=== PATIENT | female | born 1970 | race Caucasian/White ===

== ENCOUNTER 2016-12-13 21:40 | Emergency (ER) | payer OTHER ==
[2016-12-13 21:46] VITALS: BP 140/82
[2016-12-13] MEDS ORDERED: DIPH/PERTUSS(ACELL)/TETANUS VAC/PF 0.5 ML SYR (>=10YO) IM ONE (22:00)
--- NOTE | 2016-12-13 22:02 | ER Document Report ---
HPI - HPI Patient complains to provider of: left index finger injury Pain Level: 2 Context: Patient is a 38-year-old female who comes emergency department for chief complaint of a small laceration to the left index finger. She states she was trying to pull a cushion under herself when she pinched the finger between a question and the side of the chair and the chair caused a small laceration which was bleeding. She applied pressure and was able to stop the bleeding. She is not up-to-date on her tetanus. She does not have diabetes. She is not on a blood thinner. - REPRODUCTIVE Reproductive: DENIES: : Past Medical History - General Information source: Patient - Social History Smoking Status: Never Smoker Frequency of alcohol use: None Drug Abuse: None Lives with: Family Family History: Reviewed & Not Pertinent Patient has suicidal ideation: No Patient has homicidal ideation: No - Past Medical History Cardiac Medical History: Reports: Hx Hypertension Pulmonary Medical History: Denies: Hx Tuberculosis Renal/ Medical History: Reports: Hx Kidney Stones - LEFT KIDNEY. Denies: Hx Peritoneal Dialysis Musculoskeltal Medical History: Reports Hx Arthritis Past Surgical History: Reports: Hx Section - X3, Hx Cholecystectomy, Hx Hysterectomy. Denies: Hx Pacemaker - Immunizations Hx Diphtheria, Pertussis, Tetanus Vaccination: Yes Vertical Provider Document - CONSTITUTIONAL General Appearance: WD/WN, No Apparent Distress - INFECTION CONTROL TRAVEL OUTSIDE OF THE [place] IN LAST 30 DAYS: No - HEENT HEENT: Atraumatic, Normocephalic - NECK Neck: Normal Inspection - RESPIRATORY Respiratory: Breath Sounds Normal, No Respiratory Distress O2 Sat by Pulse Oximetry: 95 - CARDIOVASCULAR Cardiovascular: Regular Rate, Regular Rhythm - GI/ABDOMEN Gastrointestinal: Abdomen Soft, Abdomen Non-Tender - BACK Back: Normal Inspection - MUSCULOSKELETAL/EXTREMETIES Musculoskeletal/Extremeties: Tender - There is a 0.5 cm linear laceration over the lateral side of the left index finger, superficial, near the nail but not including the nail. Normal range of motion of the finger, normal capillary refill and sensation, normal hand exam otherwise. Course - Re-evaluation Re-evalutation: Patient with a very small laceration over the left lateral index finger near the fingernail. No current bleeding. I discussed different fixing options including 1 to 2 sutures versus Dermabond. Discussed infection risks especially with the location of the finger. Chose Dermabond. Wound repaired without any difficulty. Discussed wound care, follow-up, return precautions. Patient states understanding and agreement. - Vital Signs Vital signs: Temp Pulse Resp BP Pulse Ox 98.2 F 80 18 140/82 H 95 12/13/16 21:44 12/13/16 21:44 12/13/16 21:44 12/13/16 21:44 12/13/16 21:44 Procedures - Laceration/Wound Repair Left index finger Wound length (cm): 0.5 Wound's Depth, Shape: Linear Laceration pre-procedure: Sterile PPE donned, Sterile drapes applied, Shur- Clens applied - surgiclens Wound explored: Clean, No foreign body removed Wound Debrided: Minimal Wound Repaired With: Dermabond Layer Closure?: No Post-procedure NV exam normal: Yes Complications: No Discharge - Discharge Clinical Impression: Finger laceration Qualifiers: Encounter type: initial encounter Finger: index finger Damage to nail status: without damage Foreign body presence: without foreign body Laterality: left Qualified Code(s): S61.211A - Laceration without foreign body of left index finger without damage to nail, initial encounter Condition: Stable Disposition: HOME, SELF-CARE Additional Instructions: Examination shows a small laceration to the left index finger. This has been repaired with Dermabond. You can wash your hand with soap and water, you can shower, avoid scrubbing the glued area, do not place antibiotic ointment on it, glue should stay on for 5 days. After this if you want to remove it using antibiotic ointment you can. Follow-up with primary care. Return to emergency department for any concerning symptoms including swelling or redness of the finger, fever, or any other concerning symptoms.
== END 2016-12-13 22:13 | disposition home or self-care (01) ==
LOC: ER 21:40
DX: S61.211A Laceration without foreign body of left index finger without damage to nail, initial encounter (principal); X58.XXXA Exposure to other specified factors, initial encounter
CPT/HCPCS: 99283

== ENCOUNTER 2017-07-18 08:51 | Emergency (ER) | payer OTHER ==
[2017-07-18] MEDS ORDERED: ONDANSETRON HCL INJ/PF 4 MG/2 ML SDV IV ONE ×2 (09:19→10:20)
[2017-07-18] MEDS ORDERED: METOCLOPRAMIDE HCL INJ/PF 10 MG/2 ML SDV IV ONE (09:43)
[2017-07-18] MEDS: RINGERS SOLUTION,LACTATED 1,000 ML IV PRN ×2 (10:03→10:22)
[2017-07-18 10:37] LABS: ABSOLUTE LYMPHOCYTES (AUTO) 0.8 10^3/uL (0.5-4.7); ABSOLUTE MONOCYTES (AUTO) 0.5 10^3/uL (0.1-1.4); ABSOLUTE NEUT (AUTO) 5.9 10^3/uL (1.7-8.2); BASOPHILS % (AUTO) 0.4 % (0-2); EOSINOPHILS % (AUTO) 0.4 % (0-6); HEMATOCRIT 44.4 % (36.0-47.0); HEMOGLOBIN 14.2 g/dL (12.0-15.5); LYMPHOCYTES % (AUTO) 11.3 % (13-45); MEAN CORPUSCULAR HEMOGLOBIN 27.8 pg (27.0-33.4); MEAN CORPUSCULAR VOLUME 87 fl (80-97); MONOCYTES % (AUTO) 7.1 % (3-13); PLATELET COUNT 276 10^3/uL (150-450); RED CELL DISTRIBUTION WIDTH 15.3 % (11.5-14.0); SEGMENTED NEUTROPHILS % (AUTO) 80.8 % (42-78); TOTAL CELLS COUNTED % (AUTO) 100 %; WHITE BLOOD COUNT 7.4 10^3/uL (4.0-10.5)
[2017-07-18 10:50] LABS: APPEARANCE,URINE CLEAR; BILIRUBIN,URINE NEGATIVE (NEGATIVE); COLOR,URINE YELLOW; GLUCOSE, URINE NEGATIVE (NEGATIVE); KETONES,URINE NEGATIVE (NEGATIVE); LEUKOCYTE ESTERASE,URINE NEGATIVE (NEGATIVE); NITRITE,URINE NEGATIVE (NEGATIVE); PROTEIN,URINE NEGATIVE (NEGATIVE); URINE SPECIFIC GRAVITY 1.023; UROBILINOGEN,URINE NEGATIVE mg/dL (<2.0)
[2017-07-18 13:27] LABS: ALANINE AMINOTRANSFERASE 36 U/L (9-52); ALBUMIN 3.7 g/dL (3.5-5.0); ALKALINE PHOSPHATASE 78 U/L (38-126); ANION GAP 6 (5-19); ASPARTATE AMINO TRANSFERASE 22 U/L (14-36); BILIRUBIN,DIRECT 0.1 mg/dL (0.0-0.4); BILIRUBIN,TOTAL 0.8 mg/dL (0.2-1.3); BLOOD UREA NITROGEN 13 mg/dL (7-20); CALCIUM 9.3 mg/dL (8.4-10.2); CARBON DIOXIDE 28 mmol/L (22-30); CHLORIDE 105 mmol/L (98-107); GLUCOSE 86 mg/dL (75-110); LIPASE 53.3 U/L (23-300); POTASSIUM 4.1 mmol/L (3.6-5.0); SODIUM 139.4 mmol/L (137-145); TOTAL PROTEIN 6.2 g/dL (6.3-8.2)
--- NOTE | 2017-07-18 14:03 | ER Document Report ---
ED General - General Chief Complaint: Nausea/Vomiting/Diarrhea Stated Complaint: NAUSEA Time Seen by Provider: 07/18/17 09:18 TRAVEL OUTSIDE OF THE [place] IN LAST 30 DAYS: No - HPI Patient complains to provider of: Nausea vomiting diarrhea Notes: Patient coming in for acute onset of nausea vomiting diarrhea. 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 Patient denies any abdominal pain denies any fevers or chills. Patient also denies any recent antibiotics denies any recent travel patient resting comfortably upon my evaluation states she had Zofran at home with no relief of her nausea - Related Data Allergies/Adverse Reactions: iodine [Iodine] Allergy (Severe, Verified 07/18/17 08:55) levofloxacin [From Levaquin] Allergy (Mild, Verified 07/18/17 08:55) azithromycin [From Zithromax Z-Omi] Allergy (Verified 07/18/17 08:55) ciprofloxacin [From Cipro] Allergy (Verified 07/18/17 08:55) Sulfa (Sulfonamide Antibiotics) Allergy (Verified 07/18/17 08:55) sulfamethoxazole [From Septra] Allergy (Verified 07/18/17 08:55) trimethoprim [From Septra] Allergy (Verified 07/18/17 08:55) Past Medical History - Social History Smoking Status: Never Smoker Chew tobacco use (# tins/day): No Frequency of alcohol use: None Drug Abuse: None Family History: Reviewed & Not Pertinent Patient has suicidal ideation: No Patient has homicidal ideation: No - Past Medical History Cardiac Medical History: Reports: Hx Hypertension Pulmonary Medical History: Denies: Hx Tuberculosis Renal/ Medical History: Reports: Hx Kidney Stones - LEFT KIDNEY. Denies: Hx Peritoneal Dialysis Musculoskeltal Medical History: Reports Hx Arthritis Past Surgical History: Reports: Hx Section - X3, Hx Cholecystectomy, Hx Hysterectomy. Denies: Hx Pacemaker - Immunizations Hx Diphtheria, Pertussis, Tetanus Vaccination: Yes Review of Systems - Review of Systems Constitutional: No symptoms reported EENT: No symptoms reported Cardiovascular: No symptoms reported Respiratory: No symptoms reported Gastrointestinal: Diarrhea, Nausea, Vomiting Genitourinary: No symptoms reported Female Genitourinary: No symptoms reported Musculoskeletal: No symptoms reported Skin: No symptoms reported Hematologic/Lymphatic: No symptoms reported Neurological/Psychological: No symptoms reported -: Yes All other systems reviewed and negative Physical Exam - Vital signs Vitals: Temp Pulse Resp BP Pulse Ox 98.7 F 81 16 138/84 H 98 07/18/17 08:57 07/18/17 08:57 07/18/17 08:57 07/18/17 08:57 07/18/17 08:57 Interpretation: Normal - General General appearance: Appears well, Alert - HEENT Head: Normocephalic, Atraumatic Eyes: Normal Pupils: PERRL - Respiratory Respiratory status: No respiratory distress Chest status: Nontender Breath sounds: Normal Chest palpation: Normal - Cardiovascular Rhythm: Regular Heart sounds: Normal auscultation Murmur: No - Abdominal Inspection: Normal Distension: No distension Bowel sounds: Normal Tenderness: Nontender Organomegaly: No organomegaly - Back Back: Normal, Nontender - Extremities General upper extremity: Normal inspection, Nontender, Normal color, Normal ROM , Normal temperature General lower extremity: Normal inspection, Nontender, Normal color, Normal ROM , Normal temperature, Normal weight bearing. No: Prema's sign - Neurological Neuro grossly intact: Yes Cognition: Normal Orientation: AAOx4 [place] Coma Scale Eye Opening: Spontaneous [place] Coma Scale Verbal: Oriented [place] Coma Scale Motor: Obeys Commands [place] Coma Scale Total: 15 Speech: Normal Motor strength normal: LUE, RUE, LLE, RLE Sensory: Normal - Psychological Associated symptoms: Normal affect, Normal mood - Skin Skin Temperature: Warm Skin Moisture: Dry Skin Color: Normal Course - Re-evaluation Re-evalutation: 07/18/17 14:45 The patient presents with nausea vomiting diarrhea without signs of peritonitis or other life-threatening or serious etiology. The patient appears stable for discharge and has been instructed to return immediately if the symptoms worsen in any way, or in 8-12hr if not improved for re-evaluation. The patient has been instructed to return if the symptoms worsen or change in any way. - Vital Signs Vital signs: Temp Pulse Resp BP Pulse Ox 99.1 F 84 18 144/76 H 94 07/18/17 14:18 07/18/17 14:18 07/18/17 14:18 07/18/17 14:18 07/18/17 14:18 - Laboratory Result Diagrams: 07/18/17 09:52 07/18/17 12:49 Laboratory results interpreted by me: 07/18/17 07/18/17 07/18/17 09:50 09:52 12:49 RDW 15.3 H Seg Neutrophils % 80.8 H Lymphocytes % 11.3 L Total Protein 6.2 L Urine Blood MODERATE H Discharge - Discharge Clinical Impression: Nausea vomiting and diarrhea Condition: Good Disposition: HOME, SELF-CARE Instructions: Gastroenteritis (adult) ([facility]) Additional Instructions: Your laboratory studies not reveal any significant pathology. Please take medication as prescribed. He may continue your Zofran to his home. Take Tylenol Motrin for pain control. He may take the Bentyl for abdominal cramping. Prescriptions: Dicyclomine HCl [Bentyl 20 mg Tablet] 20 mg PO QID #30 tablet Metoclopramide HCl [Reglan] 5 mg PO Q6 #30 tablet Forms: Return to Work
[2017-07-18 14:21] VITALS: BP 144/76
== END 2017-07-18 14:24 | disposition home or self-care (01) ==
LOC: ER 08:51
DX: R11.2 Nausea with vomiting, unspecified (principal); R19.7 Diarrhea, unspecified; I10 Essential (primary) hypertension; Z88.1 Allergy status to other antibiotic agents; Z88.2 Allergy status to sulfonamides; Z90.49 Acquired absence of other specified parts of digestive tract; Z90.710 Acquired absence of both cervix and uterus; Z87.442 Personal history of urinary calculi
CPT/HCPCS: 99284; 96375; 96365; 36415; 84702; 83690; 85025; 80053; 81001; J2405; J7120

== ENCOUNTER 2018-09-29 21:41 | Emergency (ER) | payer OTHER ==
[2018-09-29 22:03] VITALS: BP 128/67
[2018-09-29] MEDS ORDERED: ONDANSETRON 4 MG TAB.RAPDIS PO ONE (23:32)
--- NOTE | 2018-09-29 23:36 | ER Document Report ---
ED Medical Screen (RME) - General Chief Complaint: Constipation Stated Complaint: CONSTIPATION Time Seen by Provider: 09/29/18 23:20 Notes: Patient is a 48-year-old female who presents emergency department with a chief complaint of constipation. She states that she had her last bowel movement 6 days ago and 5 days ago she had surgery on her Achilles tendon and a heel spur. She states that she has been taking senna, [id number] stool softeners, and magnesium citrate, with little relief. She is currently on oxycodone for pain from her surgery. She does feel nauseated. She had a small bowel movement shortly before being seen in triage, but states she does not feel it is enough. Exam: Normoactive bowel sounds. Round, soft abdomen. I have greeted and performed a rapid initial assessment of this patient. A comprehensive ED assessment and evaluation of the patient, analysis of test results and completion of medical decision making process will be conducted by an additional ED providers. TRAVEL OUTSIDE OF THE [place] IN LAST 30 DAYS: No - Related Data Allergies/Adverse Reactions: iodine [Iodine] Allergy (Severe, Verified 07/18/17 08:55) levofloxacin [From Levaquin] Allergy (Mild, Verified 07/18/17 08:55) azithromycin [From Zithromax Z-Omi] Allergy (Verified 07/18/17 08:55) ciprofloxacin [From Cipro] Allergy (Verified 07/18/17 08:55) Sulfa (Sulfonamide Antibiotics) Allergy (Verified 07/18/17 08:55) sulfamethoxazole [From Septra] Allergy (Verified 07/18/17 08:55) trimethoprim [From Septra] Allergy (Verified 07/18/17 08:55) Past Medical History - Past Medical History Cardiac Medical History: Reports: Hx Hypertension Pulmonary Medical History: Denies: Hx Tuberculosis Renal/ Medical History: Reports: Hx Kidney Stones - LEFT KIDNEY. Denies: Hx Peritoneal Dialysis Musculoskeltal Medical History: Reports Hx Arthritis Past Surgical History: Reports: Hx Section - X3, Hx Cholecystectomy, Hx Hysterectomy. Denies: Hx Pacemaker - Immunizations Hx Diphtheria, Pertussis, Tetanus Vaccination: Yes Physical Exam - Vital signs Vitals: Temp Pulse Resp BP Pulse Ox 97.5 F 80 16 128/67 H 98 09/29/18 22:01 09/29/18 22:01 09/29/18 22:01 09/29/18 22:01 09/29/18 22:01 Course - Vital Signs Vital signs: Temp Pulse Resp BP Pulse Ox 97.5 F 80 16 128/67 H 98 09/29/18 22:01 09/29/18 22:01 09/29/18 22:01 09/29/18 22:01 09/29/18 22:01
--- NOTE | 2018-09-30 01:20 | RADIOLOGY REPORT (SQ) ---
EXAM DESCRIPTION: XR ABDOMEN 1 VIEW (KUB) COMPLETED DATE/TME: 09/29/2018 23:32 CLINICAL HISTORY: 48 years, Female, no BM in 1 week COMPARISON: None. NUMBER OF VIEWS: 2 TECHNIQUE: AP abdomen LIMITATIONS: None. FINDINGS: The bowel gas pattern is nonspecific. Surgical clips right upper quadrant. Moderate gas and stool in the colon IMPRESSION: Nonspecific bowel gas pattern copyright 2010 [employer] [facility] [place]- All Rights Reserved
[2018-09-30] MEDS ORDERED: ACETAMINOPHEN 325 MG TABLET PO ONE (01:44)
[2018-09-30] MEDS ORDERED: ONDANSETRON HCL 8 MG TABLET PO ONE (02:02)
[2018-09-30] MEDS ORDERED: ONDANSETRON ODT 4 MG TAB (6 TAB/ER DISP) PO PRN (04:45)
--- NOTE | 2018-09-30 04:50 | ER Document Report ---
ED General - General Chief Complaint: Constipation Stated Complaint: CONSTIPATION Time Seen by Provider: 09/29/18 23:20 Notes: Patient is a 48-year-old female who presents emergency department with a chief complaint of constipation. She states that she had her last bowel movement 6 days ago and 5 days ago she had surgery on her Achilles tendon and a heel spur. She states that she has been taking senna, [id number] stool softeners, and magnesium citrate, with little relief. She is currently on oxycodone for pain from her surgery. She does feel nauseated. She had a small bowel movement shortly before being seen in triage, but states she does not feel it is enough. TRAVEL OUTSIDE OF THE [place] IN LAST 30 DAYS: No - Related Data Allergies/Adverse Reactions: iodine [Iodine] Allergy (Severe, Verified 07/18/17 08:55) levofloxacin [From Levaquin] Allergy (Mild, Verified 07/18/17 08:55) azithromycin [From Zithromax Z-Omi] Allergy (Verified 07/18/17 08:55) ciprofloxacin [From Cipro] Allergy (Verified 07/18/17 08:55) Sulfa (Sulfonamide Antibiotics) Allergy (Verified 07/18/17 08:55) sulfamethoxazole [From Septra] Allergy (Verified 07/18/17 08:55) trimethoprim [From Septra] Allergy (Verified 07/18/17 08:55) Past Medical History - Social History Smoking Status: Unknown if Ever Smoked Family History: Reviewed & Not Pertinent Patient has suicidal ideation: No Patient has homicidal ideation: No - Past Medical History Cardiac Medical History: Reports: Hx Hypertension Pulmonary Medical History: Denies: Hx Tuberculosis Renal/ Medical History: Reports: Hx Kidney Stones - LEFT KIDNEY. Denies: Hx Peritoneal Dialysis Musculoskeletal Medical History: Reports Hx Arthritis Past Surgical History: Reports: Hx Section - X3, Hx Cholecystectomy, Hx Hysterectomy. Denies: Hx Pacemaker - Immunizations Hx Diphtheria, Pertussis, Tetanus Vaccination: Yes Review of Systems - Review of Systems Notes: REVIEW OF SYSTEMS: CONSTITUTIONAL : Denies recent illness. Denies recent unintentional weight loss. Denies fever, chills, or sweats. EENT: Denies eye, ear, throat, or mouth pain, discharge, or symptoms. Denies nasal or sinus congestion. CARDIOVASCULAR: Denies chest pain. RESPIRATORY: Denies shortness of breath, cough, congestion, difficulty breathing, or wheezing. GASTROINTESTINAL: See HPI GENITOURINARY: Denies difficulty urinating, burning, blood in urine, urgency or frequency. MUSCULOSKELETAL: Denies neck and back pain. Denies joint pain or swelling. SKIN: Denies rash, itchiness, or lesions HEMATOLOGIC : Denies easy bruising or bleeding. LYMPHATIC: Denies swollen, painful, enlarged glands. NEUROLOGICAL: Denies no numbness or tingling denies weakness. Denies headache. Denies altered mental status. Denies alteration in speech. PSYCHIATRIC: Denies stress, anxiety, alteration in sleep patterns, or depression. All other systems reviewed and negative. Physical Exam - Vital signs Vitals: Temp Pulse Resp BP Pulse Ox 97.5 F 80 16 128/67 H 98 09/29/18 22:01 09/29/18 22:01 09/29/18 22:01 09/29/18 22:01 09/29/18 22:01 - Notes Notes: PHYSICAL EXAMINATION: GENERAL: Appears well, obese, no acute distress. HEAD: Normocephalic, atraumatic. EYES: PERRL, conjunctiva normal, all extraocular movements intact, sclera nonicteric ENT: Moist mucous membranes. NECK: Supple, no noticeable swelling, redness, rash. Normal range of motion. LUNGS: Equal breath sounds bilaterally and clear to auscultation. No wheezes rales or rhonchi. CARDIOVASCULAR: S1-S2, regular rate, regular rhythm. Radial pulses 2+, normal. ABDOMEN: Normoactive bowel sounds. Soft, nontender, no guarding, no rebound tenderness, and no masses palpated. Obese abdomen EXTREMITIES: Normal strength and range of motion, no pitting or edema. No cyanosis. Capillary refill less than 3 seconds. NEUROLOGICAL: Moves all extremities upon command. Cast noted to right lower extremity from Achilles tendon surgery. PSYCH: Normal mood, normal affect. SKIN: Warm, dry. No rash, lesions, ulcerations noted. Normal skin turgor. Course - Re-evaluation Re-evalutation: 09/30/18 04:49 Patient states that she does feel better after receiving her enema. She did have some liquid bowel movements. I have advised her to take Colace twice a day. She is in agreement with this plan. She will follow-up with her primary care provider in regards to this visit. I have also advised her to cut back on her narcotic pain medication, as this is causing her constipation. Verbal discharge instructions were given to the patient. They verbalized underst anding. They are stable for discharge. - Vital Signs Vital signs: Temp Pulse Resp BP Pulse Ox 97.5 F 80 16 128/67 H 98 09/29/18 22:01 09/29/18 22:01 09/29/18 22:01 09/29/18 22:01 09/29/18 22:01 Discharge - Discharge Clinical Impression: Constipation Qualifiers: Constipation type: drug induced constipation Qualified Code(s): K59.03 - Drug induced constipation Condition: Stable Disposition: HOME, SELF-CARE Instructions: Constipation ([facility]) Additional Instructions: You were seen today in the emergency department for constipation. You received an enema here in the emergency department. Please continue to take your Colace 1 to 2 tablets twice a day, especially if you are on narcotic pain medication. Please follow-up with your primary care provider in regards to this visit. You are also being sent home with nausea medication. You can take 1 to 2 tablets every 4-6 hours as needed. If you develop a fever, worsening abdominal pain, or have any symptoms that are worrisome to you, please return to the emergency department.
== END 2018-09-30 05:12 | disposition home or self-care (01) ==
LOC: ER 21:41
DX: K59.03 Drug induced constipation (principal); T50.905A Adverse effect of unspecified drugs, medicaments and biological substances, initial encounter; R11.0 Nausea; I10 Essential (primary) hypertension; E66.9 Obesity, unspecified; Z98.890 Other specified postprocedural states; Z88.1 Allergy status to other antibiotic agents; Z88.2 Allergy status to sulfonamides
CPT/HCPCS: 99283; 74018; S0119

== ENCOUNTER 2018-12-04 11:06 | Emergency (ER) | payer OTHER ==
--- NOTE | 2018-12-04 11:20 | ER Document Report ---
ED Medical Screen (RME) - General Chief Complaint: Leg Swelling Stated Complaint: RIGHT LEG SWELLING Time Seen by Provider: 12/04/18 11:14 Mode of Arrival: Ambulatory Information source: Patient Notes: Patient is a 48-year-old female presented emergency department with chief complaint of right lower extremity pain, swelling and erythema. Patient reports she had an Achilles tendon repair done to this extremity on 09/24/2018 by an orthopedic surgeon in [place]. Patient reports she had a subsequent DVT and PE following the surgery. She states she is on warfarin 10 mg daily. She reports last night and the leg started swelling up significantly around the ankle and calf area. She reports the swelling has increased today and is causing pain. She currently denies any chest pain or shortness of breath. Exam: Swelling and erythema noted to right lower extremity just superior to the ankle. *Note that patient does have history of lymphadenopathy so she does have recurrent swelling in different areas throughout her body. I have greeted and performed a rapid initial assessment of this patient. A comprehensive ED assessment and evaluation of the patient, analysis of test results and completion of the medical decision making process will be conducted by additional ED providers. I have specifically instructed the patient or family members with the patient to immediately return to any nursing staff should anything change in the patient's condition or with their chief complaint. This medical record was dictated with voice recognizing software. There may be grammatical, syntax errors that are unintended. TRAVEL OUTSIDE OF THE [place] IN LAST 30 DAYS: No - Related Data Allergies/Adverse Reactions: iodine [Iodine] Allergy (Severe, Verified 12/04/18 11:07) levofloxacin [From Levaquin] Allergy (Mild, Verified 12/04/18 11:07) azithromycin [From Zithromax Z-Omi] Allergy (Verified 12/04/18 11:07) ciprofloxacin [From Cipro] Allergy (Verified 12/04/18 11:07) Sulfa (Sulfonamide Antibiotics) Allergy (Verified 12/04/18 11:07) sulfamethoxazole [From Septra] Allergy (Verified 12/04/18 11:07) trimethoprim [From Septra] Allergy (Verified 12/04/18 11:07) Past Medical History - Past Medical History Cardiac Medical History: Reports: Hx Hypertension Pulmonary Medical History: Denies: Hx Tuberculosis Renal/ Medical History: Reports: Hx Kidney Stones - LEFT KIDNEY. Denies: Hx P eritoneal Dialysis Musculoskeltal Medical History: Reports Hx Arthritis Past Surgical History: Reports: Hx Section - X3, Hx Cholecystectomy, Hx Hysterectomy. Denies: Hx Pacemaker - Immunizations Hx Diphtheria, Pertussis, Tetanus Vaccination: Yes Physical Exam - Vital signs Vitals: Temp Pulse Resp BP Pulse Ox 98.4 F 76 16 127/83 H 97 12/04/18 11:10 12/04/18 11:10 12/04/18 11:10 12/04/18 11:10 12/04/18 11:10 Course - Vital Signs Vital signs: Temp Pulse Resp BP Pulse Ox 98.4 F 76 16 127/83 H 97 12/04/18 11:10 12/04/18 11:10 12/04/18 11:10 12/04/18 11:10 12/04/18 11:10
[2018-12-04 11:49] LABS: ABSOLUTE BASOPHILS # (AUTO) 0.1 10^3/uL (0.0-0.2); ABSOLUTE EOSINOPHILS # (AUTO) 0.2 10^3/uL (0.0-0.6); ABSOLUTE LYMPHOCYTES (AUTO) 2.6 10^3/uL (0.5-4.7); ABSOLUTE MONOCYTES (AUTO) 0.5 10^3/uL (0.1-1.4); ABSOLUTE NEUT (AUTO) 3.3 10^3/uL (1.7-8.2); BASOPHILS % (AUTO) 1.4 % (0-2); EOSINOPHILS % (AUTO) 3.2 % (0-6); HEMATOCRIT 39.7 % (36.0-47.0); HEMOGLOBIN 13.1 g/dL (12.0-15.5); MEAN CORPUSCULAR HEMOGLOBIN 28.2 pg (27.0-33.4); MEAN CORPUSCULAR HGB CONC 33.1 g/dL (32.0-36.0); MEAN CORPUSCULAR VOLUME 85 fl (80-97); MONOCYTES % (AUTO) 7.5 % (3-13); PLATELET COUNT 246 10^3/uL (150-450); RED BLOOD COUNT 4.66 10^6/uL (3.72-5.28); RED CELL DISTRIBUTION WIDTH 15.1 % (11.5-14.0); SEGMENTED NEUTROPHILS % (AUTO) 48.9 % (42-78); TOTAL CELLS COUNTED % (AUTO) 100 %; WHITE BLOOD COUNT 6.7 10^3/uL (4.0-10.5)
[2018-12-04 11:53] LABS: INTERNATIONAL RATION (INR) 3.23; PROTHROMBIN TIME 33.7 SEC (11.4-15.4)
[2018-12-04 12:07] LABS: ALBUMIN 4.5 g/dL (3.5-5.0); ALKALINE PHOSPHATASE 69 U/L (38-126); ANION GAP 10 (5-19); ASPARTATE AMINO TRANSFERASE 31 U/L (14-36); BILIRUBIN,DIRECT 0.2 mg/dL (0.0-0.4); BILIRUBIN,TOTAL 0.6 mg/dL (0.2-1.3); BLOOD UREA NITROGEN 19 mg/dL (7-20); CALCIUM 9.7 mg/dL (8.4-10.2); CARBON DIOXIDE 28 mmol/L (22-30); CHLORIDE 101 mmol/L (98-107); GLUCOSE 109 mg/dL (75-110); POTASSIUM 3.8 mmol/L (3.6-5.0); TOTAL PROTEIN 7.4 g/dL (6.3-8.2)
--- NOTE | 2018-12-04 14:28 | ER Document Report ---
HPI - HPI Patient complains to provider of: RLE redness and pain Time Seen by Provider: 12/04/18 11:14 Onset/Duration: Gradual Quality of pain: Achy Severity: Mild Pain Level: 2 Context: 48-year-old female pt with the listed pmh, presented emergency department with chief complaint of right lower extremity pain, swelling and erythema x 2 days. Patient reports she had a right Achilles tendon repair on 09/24/2018 by an orthopedic surgeon in [place]. Patient reports she had a subsequent DVT and PE following the surgery. She states she is on warfarin 10 mg daily. denies any fever, chest pain or shortness of breath. no numbness, weakness or tingling. no other surgeries on this extremity. otc meds helping some. hasn't sought care until now. no pain anywhere else. pt able to walk. no fall or trauma. pain worse with movement and palpation. better with rest. area not itchy. hx of lymphedema and not sure it it's related to that or if she has a skin infection. she endorses compliance with her coumadin. no other recent changes in meds or diet. states last coumadin level was 2.5 about a week ago however they are having trouble regulating her levels and have been adjusting her dose. no hx of diabetes or asthma. no recent abx or steroids. no other associated sx Exacerbated by: Standing, Movement, Walking Relieved by: Remaining still Similar symptoms previously: Yes Recently seen / treated by doctor: No - ROS Systems Reviewed and Negative: Yes All other systems reviewed and negative - to include 10 systems, unless mentioned in the hpi - REPRODUCTIVE Reproductive: DENIES: : - DERM Skin Color: Normal, [place] Past Medical History - General Information source: Patient - Social History Smoking Status: Former Smoker Frequency of alcohol use: None Drug Abuse: None Family History: Reviewed & Not Pertinent Patient has suicidal ideation: No Patient has homicidal ideation: No - Past Medical History Cardiac Medical History: Reports: Hx Hypertension Pulmonary Medical History: Denies: Hx Tuberculosis Renal/ Medical History: Reports: Hx Kidney Stones - LEFT KIDNEY. Denies: Hx Peritoneal Dialysis Musculoskeletal Medical History: Reports Hx Arthritis Past Surgical History: Reports: Hx Section - X3, Hx Cholecystectomy, Hx Hysterectomy, Hx Orthopedic Surgery - right ankle/achilles tendon repair. Denies: Hx Pacemaker - Immunizations Immunizations up to date: Yes Hx Diphtheria, Pertussis, Tetanus Vaccination: Yes Vertical Provider Document - CONSTITUTIONAL Notes: GENERAL_APPEARANCE: alert and oriented x 3, mood and affect wnl, cooperative, no obvious discomfort. Pleasant, obese middle aged white female, smiling, speaking in full sentences, in no sign of pain or resp distress, easily sitting up, family at bedside VITALS: reviewed, see vital signs table. HEAD: no_swelling\tenderness on the head, normocephalic, atraumatic NECK: supple, no_neck_tenderness. full rom and full strength. HEART: RRR LUNGS: CTAB, good air exchange diffusely BACK: no_back_tenderness EXTREMITIES: good pulse in all extremities, right lower leg: has mild blanchable macular confluent erythema from ankle extending about mid shaft tib/fib circumferentially, mild to no swelling, mild to no tenderness and no_abrasions\lacerations other than as noted. Full rom and full strength. Normal gait. good hand stripper black and white. brisk cap refill. no other shortening or rotation of the limb or obvious deformities to suggest trauma unless otherwise noted. no other swelling or ttp. exam somewhat limited secondary to pts body habitus. there doesn't appear to be any asymmetry in leg size. no foot drop. neg yvon sign. neg sargent squeeze. no sign of infection from the achilles tendon repair. incision is well healed. c/d/i. no dehiscence. no drainage, streaking, induration, fluctuation, or bleeding. SKIN: warm, dry, good_color. no other rash. no other grossly visible overlying skin changes to suggest trauma NEURO: cerebellar function intact, motor_intact and sensory_intact in injured_extremity. cranial nerves 2-12 intact - INFECTION CONTROL TRAVEL OUTSIDE OF THE [place] IN LAST 30 DAYS: No Course - Re-evaluation Re-evalutation: pt here for some erythema to her rle x 2 days. rle doppler us neg per rad and reviewed by myself. labs unremarkable other than an INR of 3.23. will dc with keflex. advised sx care. rest and elevate legs. f/u closely with pcp for recheck of inr as abx may increase it and her pcp may need to adjust her dose. denies bleeding from any where. she has a f/u apt for an inr recheck via pcp in 2 days. advised to keep this apt. advised to f/u with pcp in 1-2 days. return for any worsening symptoms. vss. well appearing. satting well on ra. neurononfocal. pt understands and agrees to plan. On reexam, pt improved with tx listed. remained stable. nontoxic. well appearing. pain controlled. tolerating po. requesting to go home. case discussed with ER Attending, Dr. Marin, who directed and agrees with plan of care and also saw and evaluated this pt with me and advised no further workup indicated at this time and pt is stable for dc home with close f/u with pcp/specialist for INR recheck, Dr. Marin advised to give keflex 1g po here today as a loading dose and to dc with keflex to cover for cellulitis and to have pt f/u closely with pcp for a recheck of her INR as it was slightly elevated here today and pcp likely needs to adjust dose. Documentation achieved through voice recording which my lead to some occasional accidental typographical errors. Extensive efforts have been made to proof read documentation to make sure these are the least as possible. Category Date Time Status Venous Doppler Unilateral [VENOUS UNILATERAL LOWER] [ Cardiology 12/04/18 11:18 Completed CARDIO] Stat CBC WITH DIFF [HEME] Stat Lab 12/04/18 11:30 Completed COMPREHENSIVE METABOLIC PANEL [CHEM] Stat Lab 12/04/18 11:30 Completed PT/INR [PROTHROMBIN TIME/INR] [COAG] Stat Lab 12/04/18 11:30 Completed Cephalexin Monohydrate [Keflex 500 mg Capsule] Med 12/04/18 15:06 Discontinued 1,000 mg PO NOW ONE - Vital Signs Vital signs: Temp Pulse Resp BP Pulse Ox 98.4 F 76 16 127/83 H 97 12/04/18 11:10 12/04/18 11:10 12/04/18 11:10 12/04/18 11:10 12/04/18 11:10 Temp Pulse Resp BP Pulse Ox 12/04/18 15:16 98.0 F 68 18 123/76 96 12/04/18 11:10 98.4 F 76 16 127/83 H 97 - Laboratory Result Diagrams: 12/04/18 11:30 12/04/18 11:30 Laboratory results interpreted by me: 08/17/19 08/17/19 08/17/19 11:30 11:30 11:30 RDW 15.1 H PT 33.7 H Est GFR (Non-Af Amer) 49 L Labs- Entire Visit 12/04/18 12/04/18 12/04/18 11:30 11:30 11:30 WBC 6.7 RBC 4.66 Hgb 13.1 Hct 39.7 MCV 85 MCH 28.2 MCHC 33.1 RDW 15.1 H Plt Count 246 Seg Neutrophils % 48.9 Lymphocytes % 39.0 Monocytes % 7.5 Eosinophils % 3.2 Basophils % 1.4 Absolute Neutrophils 3.3 Absolute Lymphocytes 2.6 Absolute Monocytes 0.5 Absolute Eosinophils 0.2 Absolute Basophils 0.1 PT 33.7 H INR 3.23 Sodium 139.2 Potassium 3.8 Chloride 101 Carbon Dioxide 28 Anion Gap 10 BUN 19 Creatinine 1.16 Est GFR ( Amer) > 60 Est GFR (Non-Af Amer) 49 L Glucose 109 Calcium 9.7 Total Bilirubin 0.6 Direct Bilirubin 0.2 Neonat Total Bilirubin Not Reportable Neonat Direct Bilirubin Not Reportable Neonat Indirect Bili Not Reportable AST 31 ALT 30 Alkaline Phosphatase 69 Total Protein 7.4 Albumin 4.5 - Diagnostic Test Radiology reviewed: Image reviewed, Reports reviewed Radiology results interpreted by me: Venous Doppler RLE: negative per rad and reviewed by myself. Discharge - Discharge Clinical Impression: Cellulitis of right lower extremity, Anticoagulated on Coumadin Condition: Good Disposition: HOME, SELF-CARE Instructions: Cellulitis ([facility]) Additional Instructions: Follow-up with your PCP in 1 to 2 days. Return for any worsening symptoms. take the medication as prescribed. have your coumadin level rechecked on Thursday and call your doctor on thursday for possible adjustment of your coumadin level as it was 3.23 today. your right lower extremity ultrasound was negative for a blood clot today. the antibiotic may affect your coumadin level and make your blood too thin, this needs to be closely monitored and rechecked by your doctor on thursday as discussed. Prescriptions: Cephalexin Monohydrate [Keflex 500 mg Capsule] 500 mg PO Q6H 7 Days #28 capsule Referrals: MENDEZ VILLA NP [Primary Care Provider] - Follow up as needed
--- NOTE | 2018-12-04 14:57 | ER Document Report ---
Doctor's Note Notes: 12/04/18 14:56 Venous doppler negative per doppler tech
[2018-12-04] MEDS ORDERED: CEPHALEXIN 500 MG CAPSULE PO ONE (15:06)
[2018-12-04 15:18] VITALS: BP 123/76
--- NOTE | 2018-12-05 13:57 | XCELERA REPORT ---
[address] [facility] [id number] Lower Extremity Venous Evaluation Procedure: Color flow and duplex imaging of the veins of the right lower extremity as well as the left Common Femoral vein. Right Sided Venous Evaluation Normal vessel filling wall to wall, compression and augmentation as well as Colour flow down to the infrageniculate veins. Left Sided Venous Evaluation The left common femoral vein is fully compressible. Spontaneous and phasic flow is present in the left common femoral vein. Interpretation Summary No duplex evidence of DVT or obstruction in the right lower extremity nor in the left Common Femoral vein. Name: LEE ZUNIGA Age: 48 yrs Gender: Female : 1970 Patient Status: Emergency Patient Location: ER Study Date: 12/04/2018 01:00 PM Reason For Study: RLE swelling, pain, hx of DVT/PE Ordering Physician: ELICEO GUNN Performed By: Nelly Mcintosh : ELICEO GUNN > Trung Arriola
== END 2018-12-04 15:18 | disposition home or self-care (01) ==
LOC: ER 11:06
DX: L03.115 Cellulitis of right lower limb (principal); Z98.890 Other specified postprocedural states; I26.99 Other pulmonary embolism without acute cor pulmonale; I82.409 Acute embolism and thrombosis of unspecified deep veins of unspecified lower extremity; Z79.01 Long term (current) use of anticoagulants; I10 Essential (primary) hypertension; E66.9 Obesity, unspecified; Z87.891 Personal history of nicotine dependence
CPT/HCPCS: 36415; 80053; 85025; 85610; 93971; 99284